=== PATIENT | female | born 1945 | race Hispanic/Latino ===

== ENCOUNTER 2017-05-04 09:00 | Outpatient (RCR) | payer BC ==
[~2017-05-04 09:00] MED LIST: CLONIDINE PATCH; DIOVAN HCT 3201 EAC1 PO; METOPROLOL SUC100 MG PO; ULTRAM50 MG PO; [UNRECOGNIZED DRUG - OTHER] TD
== END 2017-05-05 ==
LOC: OT 09:00
PROVIDERS: ATTEND Specialist
DX: S52.501D Unspecified fracture of the lower end of right radius, subsequent encounter for closed fracture with routine healing (principal); M25.531 Pain in right wrist; M25.631 Stiffness of right wrist, not elsewhere classified; M25.641 Stiffness of right hand, not elsewhere classified; R53.1 Weakness
CPT/HCPCS: 97010 ×8; 97110 ×9; 97165; 97760; G8987; G8988; L3912

== ENCOUNTER 2017-05-31 10:00 | Outpatient (RCR) | payer BC | END 2017-06-02 | LOC: OT 10:00 | PROVIDERS: ATTEND Specialist | DX: S52.501D Unspecified fracture of the lower end of right radius, subsequent encounter for closed fracture with routine healing (principal); M25.531 Pain in right wrist; M25.631 Stiffness of right wrist, not elsewhere classified; M25.641 Stiffness of right hand, not elsewhere classified; R53.1 Weakness | CPT/HCPCS: 97139 ==

== ENCOUNTER 2017-06-04 09:00 | Outpatient (RCR) | payer BC | END 2017-07-03 | LOC: OT 09:00 | PROVIDERS: ATTEND Specialist | DX: S52.591A Other fractures of lower end of right radius, initial encounter for closed fracture (principal); M25.631 Stiffness of right wrist, not elsewhere classified | CPT/HCPCS: 97139 ==

== ENCOUNTER 2021-07-28 00:44 | Emergency (ER) | payer BC ==
[~2021-07-28] VITALS: Ht 157.5 cm; Wt 68.9 kg
== END 2021-07-28 01:12 | disposition home or self-care (01) ==
LOC: ER 00:53
DX: K91.840 Postprocedural hemorrhage of a digestive system organ or structure following a digestive system procedure (principal); I10 Essential (primary) hypertension
CPT/HCPCS: 99282